=== PATIENT | female | born 1950 | race Caucasian/White ===

== ENCOUNTER 2023-10-11 10:55 | Emergency (ER) | payer OTHER ==
[~2023-10-11] VITALS: Ht 152.4 cm; Wt 91.0 kg
[~2023-10-11 10:55] MED LIST: ASPI-1497 PO
[2023-10-11 11:08] VITALS: TEMP 98.5; O2SAT 100
[2023-10-11 11:36] LABS: BASOPHILS % 0.7 % (0.0-2.0); EOSINOPHILS % 3.5 % (0.0-5.0); HEMATOCRIT. 37.8 % (36.0-48.0); HEMOGLOBIN. 12.7 g/dL (12.0-16.0); LYMPHOCYTES % 35.6 % (20.0-50.0); MEAN CORPUSCULAR HEMOGLOBIN 27.8 pg (28.0-32.0); MEAN CORPUSCULAR HGB CONC 33.6 g/dL (31.0-37.0); MEAN CORPUSCULAR VOLUME 82.7 fL (81.0-99.0); MEAN PLATELET VOLUME 8.8 fl (7.4-10.4); MONOCYTES % 9.1 % (2.0-8.0); NEUTROPHILS % 51.1 % (40.0-76.0); PLATELET 308 x1000/uL (130-400); RED BLOOD CELL COUNT 4.57 mill/uL (4.2-5.4); RED CELL DISTRIBUTION WIDTH 15.7 % (11.6-14.6); WHITE BLOOD COUNT 8.8 x1000/uL (4.5-11.0)
[2023-10-11 11:53] LABS: ALANINE AMINOTRANSFERASE 17 IU/L (10-49); ALBUMIN 4.7 g/dL (3.2-4.8); ASPARTATE AMINOTRANSFERASE 25 IU/L (<34); BILIRUBIN TOTAL 0.4 mg/dL (0.1-1.0); CALCIUM 9.7 mg/dL (8.7-10.4); CARBON DIOXIDE 27 mEq/L (21-32); CHLORIDE 100 mEq/L (98-107); CREATININE 0.7 mg/dL (0.6-1.0); GLUCOSE 103 mg/dL (70-105); POTASSIUM 3.3 mEq/L (3.5-5.1); PROTEIN TOTAL 7.5 g/dL (6.0-8.3); SODIUM 135 mEq/L (136-145); UREA NITROGEN BLOOD 14 mg/dL (9-23)
[2023-10-11] MEDS ORDERED: ASPIRIN 81MG TABLET PO ONE (12:30)
[2023-10-11] MEDS ORDERED: POTASSIUM CHLORIDE 20MEQ TABLET SR PO ONE (12:45)
[2023-10-11 12:52] LABS: TROPONIN I HIGH SENSITIVITY 7 ng/L (3.0-34)
[2023-10-11 13:01] LABS: D-DIMER 1.19 mg/L FEU (<0.50); PARTIAL THROMBOPLASTIN TIME 30.2 sec (23.4-31.0); PROTHROMBIN TIME 11.2 sec (9.6-11.0)
[2023-10-11 13:40] VITALS: BP 122/44; PULSE 70; RESP 14
[2023-10-11 14:51] LABS: TROPONIN I HIGH SENSITIVITY 8 ng/L (3.0-34)
[2023-10-11] MEDS ORDERED: IOHEXOL-350 100 ML BOTTLE ONE ×2 (15:18→23:06)
== END 2023-10-11 18:43 | disposition short-term general hospital (02) ==
LOC: ER 11:16 → CANBEDREQ 10-13 10:41
DX: R60.0 Localized edema (principal); R07.89 Other chest pain; I10 Essential (primary) hypertension
CPT/HCPCS: 80053; 83880; 85025; 85379; 85610; 85730; 84484; 36415; 71045; 71275; 93970; 93005; 99285; Q9967; Z7610 ×3